=== PATIENT | male | born 1930 | race Caucasian/White ===

== ENCOUNTER 2018-03-26 13:35 | Emergency (ER) | payer OTHER, BC ==
[~2018-03-26] VITALS: Ht 180.3 cm; Wt 72.5 kg
[~2018-03-26 13:35] MED LIST: Bactrim,Septra DS 80 PO; Coreg PO; Cozaar PO; NAMENDA10 MG PO; Nitrostat,NitroQuick SL; Vicodin,Norco 5/325 PO; Zocor PO
[2018-03-26 14:48] LABS: HEMATOCRIT 38.3 % (38.0-50.0); HEMOGLOBIN 12.5 G/DL (12.5-16.6); MCH 29.8 PG (29.0-34.0); MCHC 32.6 G/DL (30.0-36.0); MCV 91.2 FL (86-99); PLATELET COUNT 122 K/uL (156-360); RBC DIS.WIDTH-CV 13.4 % (11.8-14.6); RBC DIS.WIDTH-SD 44.3 % (39-53); WHITE BLOOD COUNT 6.5 K/uL (4.1-10.2)
[2018-03-26 14:59] LABS: CHLORIDE 106 mEq/L (99-109); POTASSIUM 3.9 mEq/L (3.7-5.4); SODIUM 141 mEq/L (136-147)
[2018-03-26 15:01] LABS: GLUCOSE 112 mg/dL (70-99)
[2018-03-26 15:03] LABS: TOTAL BILIRUBIN 1.6 mg/dL (0.0-1.0)
[2018-03-26 15:04] LABS: ALKALINE PHOSPHATASE 90 IU/L (3-129)
[2018-03-26 15:05] LABS: CREATININE 1.3 mg/dL (0.6-1.3); GFR ESTIMATE (CALCULATED) 56 mL/min/ (58.99-99999)
[2018-03-26 15:06] LABS: AST (GOT) 12 IU/L (2-34); UREA NITROGEN (BUN) 18 mg/dL (9-23)
[2018-03-26 15:07] LABS: ALT (GPT) 10 IU/L (3-49)
[2018-03-26 15:09] LABS: TROP-I INTERPRETATION NEGATIVE; TROPONIN-I 0.02 ng/mL (0.0-0.30)
[2018-03-26 15:47] LABS: APPEARANCE CLEAR ((CLEAR)); BILIRUBIN NEGATIVE; BLOOD NEGATIVE; COLOR STRAW ((YELLOW)); GLUCOSE (STRIP) NEGATIVE; KETONES NEGATIVE; LEUKOCYTES TRACE; NITRITE NEGATIVE; PROTEIN (STRIP) NEGATIVE; SPECIFIC GRAVITY 1.004 (1.000-1.030); UROBILINOGEN 0.2 MG/DL (0.2-1.0)
[2018-03-26 15:49] LABS: BACTERIA NONE SEEN /HPF; EPITHELIAL CELLS NONE SEEN /HPF; MUCUS TRACE /LPF; RED BLOOD CELLS 0-5 /HPF (0-5); UCUL ADDED? NO; WHITE BLOOD CELLS 0-5 /HPF (0-5)
[2018-03-26] MEDS ORDERED: LEVAQUIN750 MG PO (17:06)
[2018-03-26 17:18] VITALS: BP 177/89
== END 2018-03-26 17:36 | disposition home or self-care (01) ==
LOC: EME 13:35
PROVIDERS: Emergency Medicine Emergency Medical Services
DX: S39.012A Strain of muscle, fascia and tendon of lower back, initial encounter (principal); W18.30XA Fall on same level, unspecified, initial encounter; Y93.E9 Activity, other interior property and clothing maintenance; Y92.009 Unspecified place in unspecified non-institutional (private) residence as the place of occurrence of the external cause; N39.0 Urinary tract infection, site not specified; R53.1 Weakness; I10 Essential (primary) hypertension; I25.10 Atherosclerotic heart disease of native coronary artery without angina pectoris; F03.90 Unspecified dementia, unspecified severity, without behavioral disturbance, psychotic disturbance, mood disturbance, and anxiety; I25.2 Old myocardial infarction; Z87.891 Personal history of nicotine dependence; Z95.1 Presence of aortocoronary bypass graft
CPT/HCPCS: 71045; 72100; 72170; 80053; 81003; 83880; 84484; 85027; 93005; 99281; 99285; J0696; J7030